=== PATIENT | male | born 1970 | race Hispanic/Latino ===

== ENCOUNTER 2017-09-21 19:37 | Emergency (ER) | payer MEDICAID ==
[~2017-09-21 19:37] MED LIST: KETO10 PO
== END 2017-09-21 19:53 ==
LOC: EDH 19:37
DX: Z02.83 Encounter for blood-alcohol and blood-drug test (principal); M19.90 Unspecified osteoarthritis, unspecified site; Z88.8 Allergy status to other drugs, medicaments and biological substances

== ENCOUNTER 2021-01-18 17:32 | Emergency (ER) | payer MEDICAID | END 2021-01-18 19:47 | disposition home or self-care (01) | LOC: EDH 17:32 | DX: S29.012A Strain of muscle and tendon of back wall of thorax, initial encounter (principal); S40.011A Contusion of right shoulder, initial encounter; S20.221A Contusion of right back wall of thorax, initial encounter; M19.90 Unspecified osteoarthritis, unspecified site; Z88.1 Allergy status to other antibiotic agents; V49.09XA Driver injured in collision with other motor vehicles in nontraffic accident, initial encounter; Y93.89 Activity, other specified; Y92.89 Other specified places as the place of occurrence of the external cause; Y99.8 Other external cause status | CPT/HCPCS: 72125; 73030 ==

== ENCOUNTER 2024-12-20 16:48 | Emergency (ER) | payer MEDICAID ==
[~2024-12-20] VITALS: Ht 162.6 cm; Wt 74.8 kg
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
[2024-12-20] MEDS: CYCLOBENZAPRINE HCL 10 MG TABLET PO ONE (17:13)
[2024-12-20] MEDS: ketOROlac 60 MG VIAL (30MG/ML) IM ONE (17:14)
--- NOTE | 2024-12-20 18:20 | HMCIMG ---
CT THORACIC SPINE WITHOUT CONTRAST INDICATION: Fall 6 weeks ago TECHNIQUE: Axial helical 3 mm thick images obtained through the thoracic spine obtained without contrast. Coronal and sagittal reformatted images were submitted for interpretation. CT was performed with one or more of the following dose reduction techniques: Automated exposure control, adjustment of the mA and/or kV according to patient size, or use of iterative reconstruction technique. COMPARISON: None FINDINGS: Mild thoracic dextroscoliosis. Smooth contiguous calcification of the anterior longitudinal ligament along most of the thoracic spine can be seen with ankylosing spondylitis. Transverse fracture through the mid superior T5 vertebral body, including extension through the bilateral pars interarticularis as well as oblique extension into the right inferior margin of the T4 vertebral body on coronal images 21-26 of series 5, without facet joint widening, facet joint fracture, or vertebral body subluxation or retropulsion. Remainder of the vertebral bodies are normal in height, without evidence for fracture or compression deformity. No evidence for subluxation. The intervertebral discs are well-preserved. No significant disc protrusion/extrusion or moderate of high-grade neuroforaminal narrowing or central canal stenosis. Multilevel mild to moderate bilateral facet disease. The paravertebral soft tissues appear normal. IMPRESSION: Transverse fracture through the mid superior T5 vertebral body, including extension through the bilateral pars interarticularis as well as oblique extension into the right inferior margin of the T4 vertebral body, without facet joint widening, facet joint fracture, or vertebral body subluxation or retropulsion. Findings suggesting ankylosing spondylitis.
--- NOTE | 2024-12-20 18:21 | HMCIMG ---
THORACIC SPINE RADIOGRAPHS - 2 VIEWS INDICATION: Back pain COMPARISON: None FINDINGS: Mild thoracic dextroscoliosis. Smooth continuous calcific effusion of the anterior longitudinal ligament can be seen with ankylosing spondylitis. Transverse fracture through the superior T5 vertebral body, without subluxation or retropulsion. Remainder of the vertebral body heights and disc spaces are well-maintained. IMPRESSION: Findings suggesting an element of ankylosing spondylitis, and superimposed fracture through the superior T5 vertebral body, better visualized on the corresponding CT study, without dilatation or retropulsion.
[2024-12-20 18:25] VITALS: BP 137/61; PULSE 72; RESP 18; TEMP 97.1; O2SAT 97
[2024-12-20] MEDS ORDERED: CYCL-309 PO (18:32)
[2024-12-20] MEDS ORDERED: IBUP-2077 PO (18:32)
== END 2024-12-20 18:40 | disposition home or self-care (01) ==
LOC: EDH 16:48
DX: M45.4 Ankylosing spondylitis of thoracic region (principal); Z88.8 Allergy status to other drugs, medicaments and biological substances; Z90.49 Acquired absence of other specified parts of digestive tract; Z79.899 Other long term (current) drug therapy; W01.0XXA Fall on same level from slipping, tripping and stumbling without subsequent striking against object, initial encounter; Y93.89 Activity, other specified; Y92.89 Other specified places as the place of occurrence of the external cause; Y99.8 Other external cause status
CPT/HCPCS: 99285; 72128; 72070; 96372; J1885

== ENCOUNTER 2025-07-19 01:52 | Emergency (ER) | payer MEDICAID ==
[~2025-07-19] VITALS: Ht 162.6 cm; Wt 76.7 kg
[~2025-07-19 01:52] MED LIST changes: +CYCL-309 PO; +IBUP-2077 PO
[2025-07-19 01:54] VITALS: TEMP 98.1
--- NOTE | 2025-07-19 02:06 | ERN ---
General Chief Complaint: Mechanical Fall Stated Complaint: LAC TO BACK OF HEAD S/P FALL Time Seen by MD: 01:57 History of Present Illness Initial Comments Patient comes in for evaluation after a ground level fall. He was at home. He has been drinking. It was walking in his driveway which is gravel and fell. She saw to cut police. Denies being on any blood thinners. He reports that he has had broken C-spine about three years ago. He has he did declined C-collar in the field. Skin tear right forearm. Patient reports he broke his C-spine at C1-2 and three about 2-3 years ago and was seen at [facility] that was told that there was no surgical option available. Patient is ambulating on his own off the EMS stretcher and moving all four extremities to command . 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 Allergies: Coded Allergies: prednisone (Unverified Allergy, Unknown, REDNESS, 12/22/15) Home Meds Active Scripts Ibuprofen (Ibuprofen 800 mg Tab) 800 Mg Tab, 800 MG PO Q8H PRN for fever or pain, #30 TAB 0 Refills Prov:NANCY ARMENTA FOREST PATHOLOGY TEACHER 12/20/24 Cyclobenzaprine HCl (Cyclobenzaprine HCl) 10 Mg Tablet, 1 TAB PO TID for muscle spasms for 10 Days, #30 TAB 0 Refills Prov:NANCY ARMENTA [employer]OLOGY TEACHER 12/20/24 Ketorolac Tromethamine (Toradol) 10 Mg Tab, 10 MG PO TIDP PRN for PAIN, #15 TAB 0 Refills Prov:ERNESTO HONG Jr., MD 12/22/15 Past Medical History Past Medical History: Other Past Surgical History: Cholecystectomy ROS Dictation Ten systems reviewed and negative except as noted in HPI Physical Exam Physical Exam Dictation GEN: non toxic, NAD HEENT: atrumatic, PERRL, EOMI, conjunctivae normal NECK: Soft supple. I do not appreciate a new surgical scar. No step-offs. Patient has a very anterior neck. Patient has complained of tenderness in the cervical neck. placed in C-collar Heart RRR, no murmurs Chest: No deformity Lungs: Lungs clear to auscultation Ab: Soft nondistended nontender Back: No midline step-offs. No gross deformity. No CVA tenderness : m/s: Moving all four extremities. No gross deformity. Skin tear right forearm Neuro: CN 2-12 intact. Moving all four extremities. Psych: Cooperative Results Laboratory and Microbiology Lab and Micro Result Laboratory Tests Test 07/19/25 02:08 07/19/25 04:35 White Blood Count 4.9 K/uL (4.8-10.8) Red Blood Count 5.13 MIL/uL (4.50-6.20) Hemoglobin 14.7 g/dL (14.0-18.0) Hematocrit 44.1 % (42-54) Mean Corpuscular Volume 86.0 fL (79-99) Mean Corpuscular Hemoglobin 28.7 pg (27.0-33.0) Mean Corpuscular Hemoglobin Concent 33.3 g/dL (32.0-36.0) Red Cell Distribution Width 13.6 % (11.0-15.5) Platelet Count 242 K/uL (130-400) Mean Platelet Volume 8.8 fL (7.5-10.5) Immature Granulocyte % (Auto) 1.0 % (0-1) Neutrophils (%) (Auto) 71.8 % (40.0-77.0) Lymphocytes (%) (Auto) 20.3 % (21.0-51.0) L Monocytes (%) (Auto) 6.1 % (3.0-13.0) Eosinophils (%) (Auto) 0.0 % (0.0-8.0) Basophils (%) (Auto) 0.8 % (0.0-5.0) Neutrophils # (Auto) 3.5 K/uL (1.8-7.7) Lymphocytes # (Auto) 1.0 K/uL (1.0-4.8) Monocytes # (Auto) 0.3 K/uL (0.1-1.0) Eosinophils # (Auto) 0.00 K/uL (0.00-0.70) Basophils # (Auto) 0.04 K/uL (0.00-0.20) Absolute Immature Granulocyte (auto 0.05 K/uL (0-1) Nucleated Red Blood Cells 0.0 % (0.0-0.19) Prothrombin Time 10.5 SEC (9.6-11.6) Prothromb Time International Ratio 0.99 (0.85-1.15) Activated Partial Thromboplast Time 25.1 SEC (26.3-35.5) L Sodium Level 135 mmol/L (136-145) L Potassium Level 3.5 mmol/L (3.5-5.1) Chloride Level 98 mmol/L (101-111) L Carbon Dioxide Level 27 mmol/L (21-32) Blood Urea Nitrogen 7 mg/dL (7-18) Creatinine 0.6 mg/dL (0.5-1.3) Glomerular Filtration Rate Calc 113 mL/min (>90) Random Glucose 113 mg/dL (70-105) H Total Calcium 8.5 mg/dL (8.5-10.1) Total Bilirubin 0.3 mg/dL (0.2-1.0) Aspartate Amino Transf (AST/SGOT) 30 U/L (10-37) Alanine Aminotransferase (ALT/SGPT) 33 U/L (12-78) Alkaline Phosphatase 77 U/L (50-136) Total Protein 8.4 g/dL (6.0-8.3) H Albumin 3.7 g/dL (3.5-5.0) Serum Alcohol 281 mg/dL (0-10) H Urine Color LIGHT-YELLOW (YELLOW) Urine Appearance CLEAR (CLEAR) Urine pH 5.0 (5.0-8.0) Urine Specific [place] 1.013 (1.001-1.031) Urine Protein NEGATIVE mg/dL (NEGATIVE) Urine Glucose (UA) NEGATIVE mg/dL (NEGATIVE) Urine Ketones 5 mg/dL (NEGATIVE) H Urine Occult Blood NEGATIVE (NEGATIVE) Urine Nitrate NEGATIVE (NEGATIVE) Urine Bilirubin NEGATIVE mg/dL (NEGATIVE) Urine Urobilinogen 0.2 mg/dL (0.2-1.0) Urine Leukocyte Esterase NEGATIVE [place]/uL Labs Reviewed?: Yes EKG/XRAY/US/CT/MRI CT Scan Comment PATIENT: FAM GARCES MR#: [id number] : 1970 SEX: M AGE: 55 LOCATION: [facility] ORDER 8 STATUS: REG [facility] REPORT#: [id number] SERVICE 6 REASON: fall ORDERING PHYSICIAN: DAKOTAH SALAZAR MD PROCEDURE: HEAD WO - CT HEAD/BRAIN W/O CONTRAST EXAM: CT Head Without IV contrast. CLINICAL HISTORY: fall TECHNIQUE: Axial computed tomography images of the head/brain without intravenous contrast. COMPARISON: None provided. FINDINGS: Suboptimal evaluation of bilateral frontal and temporal lobe due to artefacts. BRAIN: No evidence of acute hemorrhage. No mass lesion. No CT evidence for acute territorial infarct. No midline shift or extra-axial collections. Cerebral and cerebellar atrophy seen. VENTRICLES: No hydrocephalus. ORBITS: The orbits are unremarkable. SINUSES AND MASTOIDS: Mild scattered mucosal disease in the paranasal sinuses. The mastoid air cells are clear bilaterally. BONES: No fracture. SOFT TISSUES: Unremarkable. IMPRESSION: No acute intracranial abnormality is present. /[place] DICTATED BY: ADRIANA RUIZ Jr., MD DATE: 07/19/25453 ELECTRONICALLY SIGNED BY: ADRIANA RUIZ Jr., MD DATE: 07/19/25453 PATIENT: FAM GARCES MR#: [id number] : 1970 SEX: M AGE: 55 LOCATION: [facility] ORDER 8 STATUS: [facility] REPORT#: [id number] SERVICE 6 REASON: fall ORDERING PHYSICIAN: DAKOTAH SALAZAR MD PROCEDURE: C SPIN WO - CT CERVICAL SPINE W/O CONTRAST EXAM: CT Cervical Spine Without IV contrast. CLINICAL HISTORY: Fall TECHNIQUE: Axial computed tomography images of the cervical spine without intravenous contrast. Sagittal and coronal reformatted images were generated. COMPARISON: None provided. FINDINGS: Nondisplaced acute oblique fracture involving the C4 vertebral body, extending to the right pedicle without significant vertebral body height loss. Acute compression fracture of the C7 vertebral body with about 20% height reduction. Reversal of the cervical lordosis with mild levocurvature of the cervical spine. Multilevel marginal osteophytes, syndesmophytes, facet hypertrophy, and facet joint fusion at multiple levels, compatible with severe spondylosis with questionable ankylosing spondylosis. 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 Mild osteopenia. No focal soft tissue abnormality in the neck. IMPRESSION: Nondisplaced acute oblique fracture involving the C4 vertebral body, extending to the right pedicle without significant vertebral body height loss. Acute compression fracture of the C7 vertebral body with about 20% height reduction. Severe spondylosis with questionable ankylosing spondylosis. /[place] DICTATED BY: ADRIANA RUIZ Jr., MD DATE: 07/19/25450 ELECTRONICALLY SIGNED BY: ADRIANA RUIZ Jr., MD DATE: 07/19/25450 [facility] CT head and neck. Labs. Update Tdap. CT head unremarkable. CT neck shows a oblique fracture through c4 vertebral body coming out the right pedicle. 20% compression fracture of C7 as well. Both of these findings appear acute. Patient neurologically intact and able to move all four extremities to command. Case was discussed with Dr. Muse from trauma surgery at [facility] who is accepting. Patient will be transfer ED to ED. 607: EMS at bedside for transfer ED Course Orders Procedure Category Date Status Time Ct Cervical Spine W/O CT 07/19/25 Resulted Contrast 01:57 Place Soft Collar (Er) CPOE 07/19/25 Transmitted 01:57 Cbc With Differential LAB 07/19/25 Complete 01:57 Comprehensive LAB 07/19/25 Complete Metabolic Panel 01:57 Alcohol, Blood LAB 07/19/25 Complete 01:57 Pt And Ptt LAB 07/19/25 Complete 01:57 Ct Head/Brain W/O CT 07/19/25 Resulted Contrast 01:57 Diphth,Pertuss(Acell),Tet PHA 07/19/25 Complete Vac (Boostrix 02:00 Fentanyl Citrate Pf PHA 07/19/25 Complete 0.05 Mg/Ml (Fentanyl 04:30 Urinalysis Profile LAB 07/19/25 Complete 04:36 Current Medications Medications (Trade) Dose Ordered Sig/Alondra Route PRN Reason Start Time Stop Time Status Last Admin Dose Admin Fentanyl Citrate (FENTanyl CITRate PF 50 MCG/ 1 ML 2ML VIAL) 25 mcg ONCE ONCE IVP 07/19/25 04:30 07/19/25 04:31 DC 07/19/25 04:31 Vital Signs Date Time Temp Pulse Resp B/P (MAP) Pulse Ox O2 Delivery O2 Flow Rate FiO2 07/19/25 05:17 75 17 111/66 96 Room Air* 0 21 11/9/25 04:33 80 17 121/76 96 Room Air* 0 07/19/25 03:28 77 20 114/72 95 Room Air* 0 07/19/25 02:13 81 16 120/77 96 Room Air* 0 07/19/25 01:54 98.1 74 16 161/60 96 Room Air 0 Critical Care Note Critical Time: 45 minutes DX & DISP Disposition: Transfer Departure Impression: Primary Impression: C4 cervical fracture Additional Impressions: Compression fracture of C7 vertebra, Alcohol intoxication Condition: Stable Referrals: DERIAN CORTES MD (PCP) DAKOTAH SALAZAR MD Jul 19, 2025 02:06
[2025-07-19 02:15] LABS: IMMATURE GRANULOCYTE ABSOLUTE 0.05 K/uL (0-1); NUCLEATED RED BLOOD CELLS 0.0 % (0.0-0.19); PLATELET COUNT (AUTO) 242 K/uL (130-400); RED BLOOD CELL COUNT(AUTO) 5.13 MIL/uL (4.50-6.20); RED CELL DISTRIBUTION WIDTH 13.6 % (11.0-15.5); WHITE BLOOD COUNT (AUTO) 4.9 K/uL (4.8-10.8)
[2025-07-19 02:23] LABS: CREATININE 0.6 mg/dL (0.5-1.3); GLOMERULAR FILTR. RATE CALC 113.0 mL/min (>90); GLUCOSE,RANDOM 113.0 mg/dL (70-105); SODIUM SERUM 135.0 mmol/L (136-145); UREA NITROGEN, BLOOD 7.0 mg/dL (7-18)
[2025-07-19 02:25] LABS: INR 0.99 (0.85-1.15)
[2025-07-19 02:28] LABS: ALCOHOL, BLOOD 281.0 mg/dL (0-10); ASPARTATE AMINOTRANSFERASE 30.0 U/L (10-37); TOTAL PROTEIN, SERUM 8.4 g/dL (6.0-8.3)
--- NOTE | 2025-07-19 02:30 | NUR ---
PATIENT AT CT SCAN AT THIS TIME.
[2025-07-19] MEDS: DIPHTH,PERTUSS(ACELL),TET VAC 0.5 ML SYG IM ONE (02:49)
--- NOTE | 2025-07-19 03:52 | HMCIMG ---
EXAM: CT Cervical Spine Without IV contrast. CLINICAL HISTORY: Fall TECHNIQUE: Axial computed tomography images of the cervical spine without intravenous contrast. Sagittal and coronal reformatted images were generated. COMPARISON: None provided. FINDINGS: Nondisplaced acute oblique fracture involving the C4 vertebral body, extending to the right pedicle without significant vertebral body height loss. Acute compression fracture of the C7 vertebral body with about 20% height reduction. Reversal of the cervical lordosis with mild levocurvature of the cervical spine. Multilevel marginal osteophytes, syndesmophytes, facet hypertrophy, and facet joint fusion at multiple levels, compatible with severe spondylosis with questionable ankylosing spondylosis. 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 Mild osteopenia. No focal soft tissue abnormality in the neck. IMPRESSION: Nondisplaced acute oblique fracture involving the C4 vertebral body, extending to the right pedicle without significant vertebral body height loss. Acute compression fracture of the C7 vertebral body with about 20% height reduction. Severe spondylosis with questionable ankylosing spondylosis. /[place]
--- NOTE | 2025-07-19 03:55 | HMCIMG ---
EXAM: CT Head Without IV contrast. CLINICAL HISTORY: fall TECHNIQUE: Axial computed tomography images of the head/brain without intravenous contrast. COMPARISON: None provided. FINDINGS: Suboptimal evaluation of bilateral frontal and temporal lobe due to artefacts. BRAIN: No evidence of acute hemorrhage. No mass lesion. No CT evidence for acute territorial infarct. No midline shift or extra-axial collections. Cerebral and cerebellar atrophy seen. VENTRICLES: No hydrocephalus. ORBITS: The orbits are unremarkable. SINUSES AND MASTOIDS: Mild scattered mucosal disease in the paranasal sinuses. The mastoid air cells are clear bilaterally. BONES: No fracture. SOFT TISSUES: Unremarkable. IMPRESSION: No acute intracranial abnormality is present. /[place]
--- NOTE | 2025-07-19 04:18 | NUR ---
PLACED ON A RIGID SUPER SHORT CERVICAL COLLAR, PROCARE.
--- NOTE | 2025-07-19 04:27 | NUR ---
BOTTOM LIQUOR ATTENDANT MADE AWARE OF NEED TO TRANSFER PATIENT
[2025-07-19 04:43] LABS: APPEARANCE,URINE CLEAR (CLEAR); GLUCOSE, URINE (UA) NEGATIVE (NEGATIVE); LEUKOCYTE ESTERASE ,URINE NEGATIVE Leu/uL (NEGATIVE); NITRATE,URINE NEGATIVE (NEGATIVE); OCCULT BLOOD,URINE NEGATIVE (NEGATIVE)
--- NOTE | 2025-07-19 04:56 | NUR ---
TRANSFER CALL PLACED TO [facility] TO INITIATE TRANSFER FOR NEUROSURGERY SERVICES
[2025-07-19 04:59] LABS: ADD UA MICROSCOPIC NO
--- NOTE | 2025-07-19 05:15 | NUR ---
TRANSFER PT. ACCEPTED BY DELMY MATHIS MD FOR TRANSFER TO [facility]--ER. REPORT: [phone]
[2025-07-19 05:17] VITALS: BP 111/66; PULSE 75; RESP 17; O2SAT 96
--- NOTE | 2025-07-19 05:44 | NUR ---
[facility] CALLED FOR TRANSPORT OF MONITORED PT.
--- NOTE | 2025-07-19 06:10 | NUR ---
PATIENT TRANSPORTED TO [facility] ER BY [facility]. REPORTS CALLED TO SHASHANK SCHNEIDER AT [facility] ED
== END 2025-07-19 06:10 ==
LOC: EDH 01:52
DX: S12.301A Unspecified nondisplaced fracture of fourth cervical vertebra, initial encounter for closed fracture (principal); S12.600A Unspecified displaced fracture of seventh cervical vertebra, initial encounter for closed fracture; S51.811A Laceration without foreign body of right forearm, initial encounter; F10.129 Alcohol abuse with intoxication, unspecified; Z88.8 Allergy status to other drugs, medicaments and biological substances; Z90.49 Acquired absence of other specified parts of digestive tract; Y90.9 Presence of alcohol in blood, level not specified; W18.39XA Other fall on same level, initial encounter; Y93.01 Activity, walking, marching and hiking; Y92.89 Other specified places as the place of occurrence of the external cause; Y99.8 Other external cause status
CPT/HCPCS: 99291; 70450; 96374; 80053; 85025; 85610; 85730; 81003; 36415; 90715; 72125; J3010